=== PATIENT | female | born 1990 | race Two or more races ===

== ENCOUNTER 2021-02-28 10:07 | Emergency (ER) | payer BC ==
[~2021-02-28] VITALS: Ht 167.6 cm; Wt 95.3 kg
[2021-02-28 10:23] VITALS: BP 130/90
[2021-02-28] MEDS ORDERED: IBUPROFEN 600 MG TABLET PO ONE (11:00)
[2021-02-28] MEDS ORDERED: ACETAMINOPHEN ES 500 MG TABLET PO ONE (11:00)
[2021-02-28] MEDS ORDERED: ACETAMINOPHEN ES 500 MG TABLET ONE (11:09)
[2021-02-28] MEDS ORDERED: IBUPROFEN 600 MG TABLET ONE (11:10)
--- NOTE | 2021-02-28 12:18 | NUR ---
Patient discharged to home in stable condition. Left Arm Sling applied. Written and verbal after care instructions given. Patient verbalizes understanding of instruction.
== END 2021-02-28 12:18 | disposition home or self-care (01) ==
LOC: ER 10:14
DX: S43.102A Unspecified dislocation of left acromioclavicular joint, initial encounter (principal); V29.88XA Motorcycle rider (driver) (passenger) injured in other specified transport accidents, initial encounter; Y93.55 Activity, bike riding; Y92.89 Other specified places as the place of occurrence of the external cause; Y99.8 Other external cause status
CPT/HCPCS: 73030-TC